=== PATIENT | female | born 1990 | race Two or more races ===

== ENCOUNTER 2023-03-30 09:53 | Outpatient (CLI) | payer OTHER, SELFPAY | END 2023-03-30 09:54 | disposition home or self-care (01) | PROVIDERS: PCP Family Medicine; Visit Provider Family Medicine | DX: D64.9 Anemia, unspecified (principal); E78.00 Pure hypercholesterolemia, unspecified; F98.8 Other specified behavioral and emotional disorders with onset usually occurring in childhood and adolescence; F10.11 Alcohol abuse, in remission; Z79.899 Other long term (current) drug therapy | CPT/HCPCS: 80053; 80061 ==

== ENCOUNTER 2023-10-20 14:22 | Outpatient (CLI) | payer OTHER, SELFPAY | END 2023-10-20 14:23 | disposition home or self-care (01) | PROVIDERS: PCP Family Medicine; Visit Provider Family Medicine | DX: D64.9 Anemia, unspecified (principal); F41.8 Other specified anxiety disorders | CPT/HCPCS: 80048; 82306; 82728; 83540 ==

== ENCOUNTER 2024-07-08 16:39 | Outpatient (CLI) | payer OTHER, SELFPAY | END 2024-07-08 16:40 | disposition home or self-care (01) | PROVIDERS: PCP Family Medicine; Visit Provider Family Medicine | DX: D64.9 Anemia, unspecified (principal); Z79.899 Other long term (current) drug therapy; Z13.228 Encounter for screening for other metabolic disorders; Z13.29 Encounter for screening for other suspected endocrine disorder | CPT/HCPCS: 80053; 82728; 84443 ==

== ENCOUNTER 2025-02-07 09:51 | Outpatient (CLI) | payer OTHER, SELFPAY | END 2025-02-07 09:52 | disposition home or self-care (01) | PROVIDERS: PCP Family Medicine; Visit Provider Family Medicine | DX: D64.9 Anemia, unspecified (principal); F41.8 Other specified anxiety disorders; F43.10 Post-traumatic stress disorder, unspecified; F98.9 Unspecified behavioral and emotional disorders with onset usually occurring in childhood and adolescence; E10.9 Type 1 diabetes mellitus without complications; Z11.3 Encounter for screening for infections with a predominantly sexual mode of transmission | CPT/HCPCS: 80061; 82306; 86592; 86703; 86803; 87529 ==